=== PATIENT | female | born 1990 | race Two or more races ===

== ENCOUNTER → 2022-02-14 | Emergency (ER) | payer MEDICAID, OTHER ==
[~2022-02-14] VITALS: Ht 157.5 cm; Wt 70.3 kg
[~2022-02-14] MED LIST: ACETAMINOPHEN 325 MG TAB PO ONE; PROM1SOL4 PO
[2022-02-14 14:06] VITALS: BP 138/87
== END | disposition home or self-care (01) ==
LOC: ER 13:47
DX: J02.9 Acute pharyngitis, unspecified (principal); Z20.822 Contact with and (suspected) exposure to COVID-19
CPT/HCPCS: 36415